=== PATIENT | female | born 1975 | race Caucasian/White ===

== ENCOUNTER → 2024-04-21 14:51 | Outpatient (REF) | payer BC, SELFPAY | LOC: HWWDC 14:51 | PROVIDERS: ATTENDING PHYSICIAN Obstetrics & Gynecology; FAMILY PHYSICIAN Internal Medicine | DX: Z12.31 Encounter for screening mammogram for malignant neoplasm of breast (principal) | CPT/HCPCS: 77063; 77067 ==

== ENCOUNTER 2024-11-23 17:55 | Inpatient (IN) | payer BC, SELFPAY ==
[2024-11-23] VITALS (13 sets, daily range): BP systolic 108–140; BP diastolic 64–92; BMI 34.3; BMI 32.9
--- NOTE | 2024-11-23 10:21 | EDRN ---
Dr. Sotelo in room w/ pt.
--- NOTE | 2024-11-23 10:31 | ED.GENMED ---
History of Present Illness
General
Chief Complaint: Musculo-Skeletal Complaint
Source: patient
Exam Limitations: none
Time Seen by Provider: 11/23/24 10:18
History of Present Illness
History of Present Illness:
49-year-old female low back pain for over a month. Some pain into the right hip. However in the last few days pain has gotten much worse. Now pain is radiating into the abdomen and chest. This started around 1 AM. No shortness of breath
pleuritic pain nausea vomiting no fever chills.
Past History
Past History
ED Past Medical History: Other
ED Past Surgical History: Gynecological
Review of Systems
Review of Systems
All Other Systems: Not applicable
Constitutional: Denies fever
Respiratory: Denies trouble breathing
ABD/GI: Denies vomiting
: Reports no symptoms
Phy Exam
Physical Exam
Physical Exam:
GENERAL: Alert and oriented in no apparent distress
EYE: Orbits normal.
NECK: Supple
CARDIAC: Regular rate and rhythm without any obvious murmurs. Good distal pulses
LUNGS: Clear breath sounds,normal
ABDOMEN: Soft, without focal tenderness or distention. No pulsatile mass. No rebound or guarding no mass or hernia
NEUROLOGICAL: Alert and oriented , grossly non-focal
SKIN: Warm and dry, no rash or lesion, no discoloration, skin intact.
MUSCULOSKELETAL: No edema,no deformity.Good color. No pain with straight leg raising. Able to stand bear weight and walk. Decreased flexion at the hip. No obvious discomfort with hip rotation. All other joints unremarkable
PSYCH: Normal and appropriate interaction.
Course
Orders/Labs/Results
Orders:
Orders
11/23/24 10:28
CT Chest/abd/pelvis Angio W/wo Urgent
Comment:
Reason For Exam: Back pain radiating to the abdomen and chest
IV Insert/Care/Rem.- Treatment PRN
0.9% Sodium Chloride 500 ml [Nss] 500 ml IV BOLUS
Ketorolac [Toradol] 15 mg IV NOW STA
Test Result ONCE
11/23/24 10:29
Electrocardiogram (*1) Stat
Reason for Study: Other
Other Reason for Exam: chest pain
Cardiac Monitoring- Treatment ONCE
EKG- Treatment ONCE
11/23/24 10:49
Complete Blood Count/With Diff Urgent
Comprehensive Metabolic Panel Urgent
HCG, Serum Qualitative Screen Urgent
Lipase Urgent
Lyme Progressive Urgent
Troponin I Urgent
Abnormal Lab Results
11/23/24
10:49
Abs Immat Gran (auto) 0.1 H 10^3/uL
(0-0.05)
Absolute Neuts (auto) 7.1 H 10^3/uL
(1.4-6.5)
Absolute Monos (auto) 0.7 H 10^3/uL
(0.1-0.6)
Immature Gran % 0.9 H %
(0-0.5)
Lymphocytes % 16.9 L %
(20.5-51.1)
Glucose 178 H mg/dl
(70-99)
AST 60 H U/L
(14-36)
Alkaline Phosphatase 434 H U/L
(38-126)
11/23/24 10:49
11/23/24 10:49
Vital Signs
Initial and Last Documented VS:
Initial Vital Signs
Temp Pulse Resp BP Pulse Ox
98.5 F 91 18 127/78 99
11/23/24 10:13 11/23/24 10:13 11/23/24 10:13 11/23/24 10:13 11/23/24 10:13
Last Documented Vital Signs
Temp Pulse Resp BP Pulse Ox
98.5 F 87 15 119/92 95
11/23/24 10:13 11/23/24 14:15 11/23/24 13:45 11/23/24 14:00 11/23/24 13:30
MDM/Problems Addressed
Differential Diagnosis Includes:
Patient with ongoing low back and right hip pain. Likely a musculoskeletal issue. However with the sudden change 10 hours ago of pain rating to the abdomen and chest feel a vascular emergency needs to be ruled out. Low suspicion but a
life-threatening issue if missed. CT angiography will be ordered. Cardiac testing for completeness. Lipase and LFTs. Also will send a Lyme titer
*Radiology
Radiology exam reviewed: radiology read reviewed (Mass right upper lobe of the lung. Suspect metastatic disease to the spine with L3 involvement)
*Pulse Oximetry
SaO2: 99
Oxygen Mode of Delivery: Room air
Patient hypoxic: no
*EKG
Interpreted by ED Provider?: Yes
Comparison EKG: no comparison EKG present
Heart Rate: 79
Rate: normal
Rhythm: sinus
[place]: normal axis
Interval: normal interval
QRS Pattern: normal QRS
Ischemia: no ischemia
*Critical Care Note
Total Time (30-74mins, 75-104mins- exclusive of procedures): Not Applicable
Update Note
Update Note:
Patient of course very tearful over the CT findings. Lengthy succussion with the patient and her sister. I feel it prudent to admit her and further work her up expeditiously in the hospital.
ED Attending Note
-
Portions of this chart may have been created with voice recognition software.� Occasional wrong word or��sound alike� substitutions may have occurred due to the inherent limitations of voice recognition software.
Discharge Plan
Departure
Patient Disposition: Admit
Date of Disposition: 11/23/24
Time of Disposition: 14:12
Presentation/result/management discussed w/ accepting MD/DO: Hospitalist
Discharge Problem:
Progressive low back/hip pain, Anterior chest/abdominal pain, Spiculated mass right upper lobe lung, Suspect bony metastasis
Prescriptions:
No Action
acetaminophen [Tylenol Extra Strength] 500 mg Tablet
1,000 mg PO Q4HPRN PRN (Reason: mild pain)
methylprednisolone 4 mg Tablets,Dose Pack
0 mg PO PER PKG DIR
Patient Comments:
11/23/2024, filled on 11/19/2024 for 6-day supply; per pt., she has 1 tablet left to take tonight and then her last dose is to be taken tomorrow (11/24/2024).
Referrals:
Gus Torres MD [Family Provider, Family Practice]
Interventions
Interventions:
*Risk Screen - Suicide Last Done: 11/23/24 10:13
*General Assessment Last Done: 11/23/24 10:40
*Neglect/Abuse Screening Last Done: 11/23/24 10:40
*ED- Fall Risk Assessment Last Done: 11/23/24 10:40
*ED COVID-19 Vaccine History Last Done: 11/23/24 10:40
ED-Musculoskeletal Assessment Last Done: 11/23/24 10:40
Discharge Date and Time
Print Language: GEORGIAN
[2024-11-23] MEDS: NSS 500 IV (10:56)
[2024-11-23] MEDS: TORADOL 15 MG IV ×2 (10:57→22:14)
[2024-11-23 11:05] LABS: Hematocrit 38.1 % (37.0-47.0); Hemoglobin 13.4 g/dL (12.0-16.0); Mean Corp Hgb Conc. 35.2 g/dL (33.0-37.0); Mean Corpuscular Volume 82.3 fL (81.0-99.0); Nucleated Red Blood Cells % 0 %; Platelet Count 270 10^3/uL (130-400); Red Cell Dist. Width 13.4 % (11.5-14.5)
[2024-11-23 11:11] LABS: HCG, Serum Qualitative Screen Negative
[2024-11-23 11:15] LABS: ALT (SGPT) 22 U/L (0-35); AST (SGOT) 60 U/L (14-36); Albumin 4.5 g/dl (3.5-5.0); Alkaline Phosphatase 434 U/L (38-126); Blood Urea Nitrogen 14 mg/dl (7-17); Calcium 9.5 mg/dl (8.4-10.2); Carbon Dioxide 22 mmol/L (22-30); Chloride 106 mmol/L (98-107); Estimated Creatinine Clearance > 125 ml/min; Glucose 178 mg/dl (70-99); Lipase 56 U/L (23-300); Potassium 4.2 mmol/L (3.5-5.1); Sodium 136 mmol/L (135-145); Total Protein 7.5 g/dl (6.3-8.2); eGFR > 60.00
[2024-11-23 11:26] LABS: Troponin I < 0.012 ng/ml
--- NOTE | 2024-11-23 13:37 | EDRN ---
Dr. Sotelo in room w/pt at this time.
--- NOTE | 2024-11-23 14:10 | W.PN.UPDATE ---
Update Note
Progress Note Update
49-year-old female with mild to moderate MR, vitamin B12 deficiency, vitamin D deficiency, migraine with aura, obesity that is presenting to the ED today with a complaint of low back pain for the last 1 month. Pain radiates into the right hip at
times, patient notes that it is worsened in intensity over the last couple of days. States that at this time it is radiating into the abdomen and chest as well as into the hip. Noticed the progression around 1 AM on day of arrival to the ED.
Denies any chest pain, shortness of breath, fevers or chills, gastrointestinal symptoms. AFVSS upon arrival. Labs with glucose 178, AST 60, ALP 434 but otherwise unremarkable. CTA C/A/P showed spiculated mass centered in the posterior aspect of
the RUL with extension across the major fissure into the RLL, as well as signs as lymphangitic spread of carcinoma within the right lung, low-density hepatic lesions, diffuse bony metastatic disease within the spine with significant metastatic
lesion at L3. In the ED she was given IV Toradol and 500 mL IV fluids.
AAO x 4, NAD, no FND or CN deficits. Cardiopulmonary exam benign. No cervical or axillary LAD. Benign abdomen. No edema, palpable pulses. Skin warm and dry. No gross deformities or signs of trauma. Tenderness to palpation of lumbar spine
Metastatic lung cancer. New diagnosis with CT C/A/P showing likely primary bronchogenic RUL neoplasm and evidence of metastases to liver and spine. Differentials include small cell cancer versus non-small cell lung cancer. No signs of
paraneoplastic syndromes. Will need tissue diagnosis with biopsy of either primary lung mass versus biopsy of liver mets. Will consult IR and pulmonology for consideration of bronchoscopy with biopsy versus liver biopsy. Eventually will need
tissue microscopy, PD 1 and PD-L1 testing, as well as Nex[employer] ration sequencing. Monitor for worsening respiratory status
Lower back pain, elevated ALP. Likely secondary to spinal mets with bone destruction. Continue with as needed analgesics and physical activity as tolerated
Regular diet
Full code
I have personally evaluated the patient at the bedside in the ED. I will be admitting Ari White to [facility]. She is at high risk for worsening morbidity due to metastatic lung cancer with bone destruction. She will need intensive monitoring
of her respiratory status. She will require intervention here to achieve tissue diagnosis of her cancer and establishment of efficacious therapeutic plan. I have discussed the case with the ED attending, oncologist, program administrator, and
interventional radiologist. I have also reviewed the case with the resident, please see the residents H&P for more details when available
--- NOTE | 2024-11-23 14:30 | EDRN ---
Pt is very sad and teary eyed about her diagnosis. Dr. Calzada was in to see pt, resident w/ hospitalist group.
--- NOTE | 2024-11-23 14:42 | EDRN ---
Dr. Duval in room at present w/ Dr. Calzada at this time.
--- NOTE | 2024-11-23 15:10 | HPS.HSE ---
Family Physician
-
Family Physician: Gus Torres
Chief Complaint
-
R hip pain
History of Present Illness
Ms Dennis is a 49-year-old female with mitral regurgitation, vitamin B12 deficiency, vitamin D deficiency, migraine with aura, obesity that presented to the ED today with a complaint of low back pain for the last 1 month. Pain radiates into the
right hip at times which has worsened. It started radiating into the abdomen and chest as well as into the hip. Noticed the progression around 1 AM on day of arrival to the ED. Denies any chest pain, shortness of breath, fevers or chills,
gastrointestinal symptoms. Vital signs were stable in the ED. Labs with WBCs 9.6 hemoglobin 13.4 sodium 136 potassium 4.4 creatinine 0.6 BUN 14 glucose 178, AST 60, ALP [address] chest abdomen pelvis showed spiculated mass
centered in the posterior aspect of the RUL with extension across the major fissure into the RLL, as well as signs as lymphangitic spread of carcinoma within the right lung, low-density hepatic lesions, diffuse bony metastatic disease within the
spine with significant metastatic lesion at L3. In the ED she was given IV Toradol and 500 mL IV fluids. She reported distant smoking history of 2 years in college, family history of lung cancer in maternal grandmother who was a smoker, father
with prostate cancer in his 80s. Otherwise no other family history. 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 She reports no significant smoke or chemical exposure throughout her lifetime. Last doctor's visit was about 2
years ago with [facility] with no findings at that time.
Medical History
Past Medical History
Past Medical History: Reports Other (Mild to moderate mitral regurgitation, vitamin B12 deficiency, vitamin D deficiency, migraine with aura)
Past Surgical History: Reports None
Social History
Tobacco: Former Smoker (2-year smoking history in 20s)
Living: With Family
Employment: Employed (Special ed director at [employer])
Family History
Family History: Other (maternal grandmother lung cancer (smoker), prostate cancer father in 80s )
Allergies / Home Medications
Allergies reflects when Allergies were last updated in blabfeed.
Home Medications with original date entered in blabfeed
Allergy/Medication List:
Allergies
Allergy/AdvReac Type Severity Reaction Status Date / Time
seasonal allergies Allergy nasal Uncoded 11/23/24 10:16
symptoms
Home Medications
acetaminophen 500 mg tablet (Tylenol Extra Strength) 1,000 mg PO Q4HPRN PRN mild pain 11/23/24
methylprednisolone 4 mg tablets in a dose pack 0 mg PO PER PKG DIR 11/23/24
Review of Systems
-
History Source: Patient
Constitutional: Reports No Symptoms; Denies Fever or Weight Loss
EENT: Reports No Symptoms
Respiratory: Reports No Symptoms; Denies Hemoptysis or Trouble Breathing
Cardiac: Reports No Symptoms; Denies Chest Pain, Diaphoresis or Palpitations
Abdomen/GI: Reports No Symptoms; Denies Abdominal Pain, Nausea or Vomiting
: Reports No Symptoms
Musculoskeletal: Reports Joint Pain (Right hip, low back)
Skin: Reports No Symptoms
Neurological: Reports No Symptoms
Psych: Reports No Symptoms
Physical Exam
Vital Signs
Vital Signs
Temp Pulse Resp BP Pulse Ox
98.5 F 87 15 119/92 95
11/23/24 10:13 11/23/24 14:15 11/23/24 13:45 11/23/24 14:00 11/23/24 13:30
Physical Exam
General: Well Developed, Well Nourished, No Apparent Distress, Obese and Other (Tearful)
HEENT: NormoCephalic, Anicteric, Atraumatic and Neck Nontender; No Neck Mass
Respiratory: Clear and Non Labored Respirations; No Wheezes or Crackles
Cardiac: S1/S2 and Regular Rhythm
Breast: Deferred by me
GI: Soft, Non Tender, Non Distended and Normal Bowel Sounds
Rectal: Deferred by Provider
Genito-urinary: Deferred by me
Musculoskeletal: No Clubbing, No Cyanosis and No Edema
Skin: Warm and Dry
Neuro: Awake, Alert, Oriented, No Motor Deficits and Nonfocal/grossly intact
Laboratory Results
-
11/23/24 10:49
11/23/24 10:49
Laboratory Results
Total Bilirubin 0.8 mg/dl (0.2-1.3) 11/23/24 10:49
AST 60 U/L (14-36) H 11/23/24 10:49
ALT 22 U/L (0-35) 11/23/24 10:49
Alkaline Phosphatase 434 U/L (38-126) H 11/23/24 10:49
Troponin I < 0.012 ng/ml 11/23/24 10:49
Lipase 56 U/L (23-300) 11/23/24 10:49
Impression/Plan
-
Ms Dennis is 49-year-old female with mild to moderate MR, vitamin B12 deficiency, vitamin D deficiency, migraine with aura, obesity that is presenting to the ED today with a complaint of low back pain for the last 1 month. Pain radiates into the
abdomen and chest as well as into the hip. CT chest showed spiculated mass centered in the posterior aspect of the RUL with extension across the major fissure into the RLL, as well as signs as lymphangitic spread of carcinoma within the right lung,
low-density hepatic lesions, diffuse bony metastatic disease within the spine with significant metastatic lesion at L3. In the ED she was given IV Toradol and 500 mL IV fluids.
# Lung neoplasm
# low back pain
# spinal lesions
# hepatic lesions
# elevated ALK Phos
former smoker (2yr history)
FHx grandmother smoker
DDx small cell vs non small cell
biopsy pending
Consult Onc
Consult Pulm
Consider IR Consult
-pain control as needed
-activity as tolerated
Bowel regimen
-as needed
DVT prophylaxis
Subcu heparin
CODE STATUS
Full code
Imaging
CT chest abdomen pelvis
IMPRESSION: Spiculated mass centered in the posterior aspect of the right upper lobe, which appears to extend across the major fissure into the adjacent right lower lobe of the lung. This is highly suspicious for malignancy/bronchogenic carcinoma.
As described, findings suspicious for lymphangitic spread of carcinoma within the right lung.
Low-density hepatic lesions, which are likely hepatic metastatic disease.
Diffuse bony metastatic disease, mainly within the spine. Evidence for epidural spread of neoplasia from metastatic lesion within the L3 vertebra, extending into the right anterolateral aspect of the spinal canal.
[2024-11-23] MEDS: NORCO 5/325 1 TABLET PO (16:05)
--- NOTE | 2024-11-23 16:30 | EDRN ---
Dr. Dooley in room w/ pt at this time.
--- NOTE | 2024-11-23 17:10 | CON.PUL ---
Consultation
Consultation Request
Date/Time Consultation Requested: 11/23
Date/Time Consultation Performed: 11/23
Reason for Consultation: Abnormal imaging
Medical History
-
History of Present Illness:
History obtained from the patient and reviewing hospital records. 49-year-old female without significant medical history who describes chronic back pain for '25 years', chronic cough for '25 years'. She attributes her cough to seasonal allergies.
She sees a chiropractor for her back pain. She felt her back pain had flared up about 3 weeks ago, was seen by her chiropractor with initial improvement. Then the pain returned, started on prednisone therapy. Prednisone therapy did not help and
therefore she brought herself into [facility]. To me she denied any abdominal pain, chest tightness, pleurisy, nausea, emesis, change in bowel habits, fevers, chills. She admits to chronic night sweats. She denies any recent antibiotics.
She states she is up to date with mammogram, has never had a colonoscopy. She has not seen her primary physician in more than few years. Upon arrival to [facility], afebrile, pulse 91, breathing at 18, blood pressure 127/78, 99%. ED records
suggest that the pain was radiating to the abdomen and the chest however patient denied this to me. CT chest obtained and we are asked to comment on her findings.
Of note, she denies any weight loss, recent travel. She does travel to [place] occasionally, last travel 2 years ago. She has had negative skin testing for tuberculosis but has not had any since her last visit to [place]. She is a lifelong
non-smoker.
Patient describes herself as active without any limitations. She denies lightheadedness, dizziness, falls, syncope. She describes occasional palpitations which are also a chronic problem according to her
.
PMH: History of ectopic
Past Medical History
Past Medical History: None ( see above)
Past Surgical History: None ( see above)
Social History
Tobacco: Non-smoker
Alcohol: Occasional
Drug: None
Personal: Single
Living: Alone
Employment: Employed ( works in the school district)
Environmental Exposures: two dogs, no birds
Family History
Family History: Reviewed & Not Pertinent ( 2 children healthy, 2 siblings healthy. Both parents are alive. Family history negative for blood clots, lung cancer)
Allergies / Home Medications
Allergies
Allergy/AdvReac Type Severity Reaction Status Date / Time
seasonal allergies Allergy nasal Uncoded 11/23/24 10:16
symptoms
Home Medications
�Medication �Instructions �Recorded �Confirmed �Last Taken �Type
acetaminophen 500 mg tablet 1,000 mg PO Q4HPRN PRN mild pain 11/23/24 11/23/24 11/23/24 History
(Tylenol Extra Strength)
methylprednisolone 4 mg tablets in 0 mg PO PER PKG DIR 11/23/24 11/23/24 11/23/24 History
a dose pack
Review of Systems
-
All other systems: Negative unless noted
Vitals / Labs / Diagnostic Testing
Vital Signs
Temp Pulse Resp BP Pulse Ox
98.5 F 96 14 135/86 97
11/23/24 10:13 11/23/24 16:30 11/23/24 16:30 11/23/24 16:00 11/23/24 16:30
Lab Data
11/23/24 10:49
11/23/24 10:49
Diagnostic Testing:
Physical Exam
-
HEENT: Normocephalic and Anicteric
Cardiovascular: S1/S2, Regular Rhythm, Murmur (n), Rub (n), Peripheral Edema (n) and Calf Tenderness (n)
Respiratory: Wheeze (n), Rales (n), Rhonchi (n) and Non-Labored Respirations
GI: Soft, Non Distended and Non Tender
Neurology: Awake, Alert and No Motor Deficits
Skin: Good Color and Other ( ankle tattoo)
General: Comfortable
Assessment
-
49-year-old female with history of chronic back pain, chronic cough with worsening of her back pain over the last few weeks, treated with a course of steroids with no improvement. Imaging suggests 4.2 cm mass in the right upper lobe, adenopathy and
small low density liver lesions and bony lytic lesions in the spine
Worsening back pain, right hip pain
4.3 cm right upper lobe mass
Right-sided adenopathy, subcarinal adenopathy
Small liver lesions, largest 1.9 cm
Suspected bony lytic lesions in the spine, sacrum
1.5 cm nodule right upper lobe
Mild hepatomegaly
3 cm left ovarian cystic mass, likely benign simple cyst per imaging report
Conditions present prior to admission
Chronic back pain for 25 years
Chronic cough for 25 years
Attributed to allergies
History of ectopic
Plan/recommendations
At this time, upon my arrival patient was extremely tearful and crying
I attempted to console her
Although her imaging is highly worrisome for malignancy, I reassured her that treatment options are available, slim possibility that it may be a nonmalignant, although I relayed to patient and friend and sister by phone that cancer is highly
suspected.
Tissue biopsy is important
Briefly reviewed with interventional radiology. Although liver lesions are accessible by biopsy, it is recommended to pursue lung biopsy initially and if not possible or nondiagnostic, consider liver biopsy given size.
Reviewed at length navigational bronchoscopy with lymph node biopsy.
We are able to pursue this 11/27
Reviewed risks at length with patient
Reviewed less than 1% chance for bleeding, 3-5% chance for pneumothorax
Reviewed risks of anesthesia. Patient tolerated anesthesia for ectopic in the past
Also reviewed possibly of liver biopsy
Reviewed possibly of false negative findings with either liver and/or lung biopsy
Patient is leaning more towards lung biopsy given that she will be asleep during procedure. She is extremely anxious throughout interview, with multiple attempts on my part to console her with the fact there are there are therapies for cancer that
are pretty effective especially with appropriate genetic mutations.
Given that she is a lifelong non-smoker, genetic analysis will be important
Continue with pain control for now per primary service
Await oncology evaluation whom I briefly reviewed the above ([place])
Patient is aware that she may require PET scan and/or additional imaging, which can be done as an outpatient pending biopsy
We will tentatively set her up for navigational bronchoscopy 11/27 as an outpatient, and may change this depending on oncology input, potential for liver biopsy
We will obtain baseline EKG and coagulation studies
No need for cardiac clearance, patient is not taking any blood thinners
Reviewed at length with patient, sister by phone and friend at bedside
Reviewed with oncology and briefly with interventional radiology
We will follow
--- NOTE | 2024-11-23 17:16 | EDRN ---
Diet tray ordered at this time.
[2024-11-23] MEDS: LOVENOX 40 MG SC (18:54)
[2024-11-23] MEDS: TYLENOL 650 MG PO (18:54)
[2024-11-23] MEDS: MELATONIN 5 MG PO (22:24)
--- NOTE | 2024-11-24 02:34 | DOWNTIME ---
There was a [employer] Downtime on 11/24/2024 from 0100 to 11/24/2024 at 0220. Downtime documentation of patient's care, including medication administrations, has been reconciled in the electronic record per guidelines. Refer to the
patient's paper chart under the miscellaneous tab to see printed paper medication records and downtime forms.
--- NOTE | 2024-11-24 03:20 | PTCARENOTE ---
Pt arrived to the unit from the ED via stretcher at 1940. Pt ambulated to the bed w/o assist, gait steady. AAOx3, tearful and anxious r/t current medical status. VSS as documented. Assessment as documented. Pt oriented to room & care plan, bed is in
lowest and locked. Call bee within reach. Will continue to monitor.
[2024-11-24] MEDS: TORADOL 15 MG IV ×2 (05:40→10:19)
[2024-11-24 06:58] LABS: Hematocrit 36.1 % (37.0-47.0); Hemoglobin 12.5 g/dL (12.0-16.0); Mean Corp Hgb Conc. 34.6 g/dL (33.0-37.0); Mean Corpuscular Volume 82.4 fL (81.0-99.0); Platelet Count 238 10^3/uL (130-400); Red Cell Dist. Width 13.4 % (11.5-14.5)
[2024-11-24 07:00] VITALS: BP 122/78
[2024-11-24 07:10] LABS: INR 1.10; PT 14.5 Sec (11.4-14.6)
--- NOTE | 2024-11-24 07:18 | CON.ONC ---
Consultation
-
Date Consultation Performed: 11/24/24
Performing Provider: Ivonne Cardenas
Impression
Impression
Lung mass, lymphangitic spread and liver lesions seen on CT CAP concerning for new diagnosis of lung cancer
Back pain for 1 month, likely bony metastatic disease
Plan
Plan
Patient opted for bronch/biopsies on Saturday11/27/24 as outpatient rather than IR liver biopsy
If biopsy confirms lung cancer, outpatient PET, brain MRI, [facility] 360 liquid biopsy would be recommended with office follow up
Patient History
History of Present Illness
Patient is a 49 year old female with PMH of mitral regurgitation and migraine with aura presenting with low back pain for 1 month.
Patient starting having pain about a month ago. She started seeing a chiropractor and tried a steroid pack with minimal relief. Patient states that her pain has been the same for the last 2 weeks. Low back and right hip. Does not radiate. Moving
around alleviates hip pain.
In the ED she was given IV Toradol and [address] Chest revealed a spiculated mass centered in the posterior aspect of the right upper lobe, which appears to extend across the major fissure into the adjacent right lower lobe of the lung,
highly suspicious for malignancy. Findings also suspicious for lymphangitic spread of carcinoma within the right lung, multiple low-density lesions within the liver highly suspicious for hepatic metastatic disease as well as diffuse bony metastatic
disease, mainly within the spine.
Patient reports distant and minimal smoking history. Patient repots no smoke or chemical exposures. Family history notable for lung cancer in maternal grandmother who was a smoker, and father with prostate cancer in his 80s.
Today patient is seen at the bedside with Dr. Cardenas. Patient's sister was on the phone. Patient says her pain is persistent and that although the pain medication helps, its still just as painful when they wear off. Patient notes a chronic cough,
with no recent changes. We discussed the options for a bronchoscopy with pulm vs. a liver biopsy with IR. Patient is opting for the outpatient bronchoscopy on 11/27/24.
Past-Medical/Surgical History
Medical
Mild to moderate mitral regurgitation
vitamin B12 deficiency
vitamin D deficiency
migraine with aura
Surgical
reports none
Social
Tobacco: Remote smoking history (2 years in college)
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
Family History
Lung cancer - maternal grandmother
Prostate cancer - father
Patient Medication
�Medication �Instructions �Recorded �Confirmed �Last Taken �Type
acetaminophen 500 mg tablet 1,000 mg PO Q4HPRN PRN mild pain 11/23/24 11/23/24 11/23/24 History
(Tylenol Extra Strength)
methylprednisolone 4 mg tablets in 0 mg PO PER PKG DIR 11/23/24 11/23/24 11/23/24 History
a dose pack
Active Medications
Generic Name Dose Route Start Last Admin
Trade Name Freq PRN Reason Stop Dose Admin
Acetaminophen 650 mg 11/23/24 15:53 11/23/24 18:54
Acetaminophen 325 Mg Tablet PO 12/21/24 15:52 650 mg
Q4HPRN PRN Administration
mild pain
Hydrocodone Bitart/Acetaminophen 1 tablet 11/23/24 15:53 11/23/24 16:05
Hydrocodone 5 Mg/Acetaminophen 325 Mg Tablet PO 12/07/24 15:52 1 tablet
Q4HPRN PRN Administration
severe pain
Bisacodyl 10 mg 11/23/24 15:07
Bisacodyl 10 Mg Rectal Suppository RECTAL 12/21/24 15:06
[id number] PRN
constipation
Enoxaparin Sodium 40 mg 11/23/24 18:00 11/23/24 18:54
Enoxaparin Sodium 40 Mg/0.4 Ml Syringe SC 12/21/24 17:59 40 mg
QPM NICK Administration
Ketorolac Tromethamine 15 mg 11/23/24 21:03 11/24/24 05:40
Ketorolac 15 Mg/Ml Injection IV 11/28/24 21:02 15 mg
Q6HPRN PRN Administration
moderate pain
Melatonin 5 mg 11/23/24 22:30 11/23/24 22:24
Melatonin 5 Mg Tablet PO 12/21/24 22:29 5 mg
HS NICK Administration
Polyethylene Glycol 17 grams 11/23/24 15:07
Polyethylene Glycol Powder 17 Grams Packet PO 12/21/24 15:06
DAILYPRN PRN
constipation
Senna/Docusate Sodium 1 tablet 11/23/24 15:07
Docusate W/Senna (Racheal-Colace) Tablet PO 12/21/24 15:06
BIDPRN PRN
constipation
Sodium Chloride 0 flush 11/23/24 22:00
Sodium Chloride 0.9% (Flush) Syringe IV 12/21/24 21:59
PER PROTOCOL NICK
Review of Systems
-
History Source: Patient
Constitutional: Reports No Symptoms
Respiratory: Reports Cough
Cardiac: Reports No Symptoms
GI: Reports No Symptoms
: Reports No Symptoms
Musculoskeletal: Reports Other (back pain and right hip pain)
Skin: Reports No Symptoms
Physical Exam
-
General: Well Developed, Well Nourished and No Apparent Distress
Labs
Lab Results
WBC 7.0 10^3/uL (4.8-10.8) 11/24/24 06:37
RBC 4.38 10^6/uL (4.20-5.40) 11/24/24 06:37
Hgb 12.5 g/dL (12.0-16.0) 11/24/24 06:37
Hct 36.1 % (37.0-47.0) L 11/24/24 06:37
MCV 82.4 fL (81.0-99.0) 11/24/24 06:37
MCH 28.5 pg (27.0-31.0) 11/24/24 06:37
MCHC 34.6 g/dL (33.0-37.0) 11/24/24 06:37
RDW 13.4 % (11.5-14.5) 11/24/24 06:37
Plt Count 238 10^3/uL (130-400) 11/24/24 06:37
MPV 9.0 fL (7.4-10.4) 11/24/24 06:37
Abs Immat Gran (auto) 0.1 10^3/uL (0-0.05) H 11/23/24 10:49
Absolute Neuts (auto) 7.1 10^3/uL (1.4-6.5) H 11/23/24 10:49
Absolute Lymphs (auto) 1.6 10^3/uL (1.2-3.4) 11/23/24 10:49
Absolute Monos (auto) 0.7 10^3/uL (0.1-0.6) H 11/23/24 10:49
Absolute Eos (auto) 0.1 10^3/uL (0-0.7) 11/23/24 10:49
Absolute Basos (auto) 0.1 10^3/uL (0-0.2) 11/23/24 10:49
Immature Gran % 0.9 % (0-0.5) H 11/23/24 10:49
Neutrophils % 74.1 % (42.2-75.2) 11/23/24 10:49
Lymphocytes % 16.9 % (20.5-51.1) L 11/23/24 10:49
Monocytes % 6.8 % (1.7-9.3) 11/23/24 10:49
Eosinophils % 0.8 % (0-6) 11/23/24 10:49
Basophils % 0.5 % (0-2) 11/23/24 10:49
Creatinine 0.6 mg/dL (0.6-1.0) 11/23/24 10:49
Vital Signs
Vital Signs
Temp Pulse Resp BP Pulse Ox
98.6 F 87 16 108/66 95
11/23/24 23:12 11/23/24 23:12 11/23/24 23:12 11/23/24 23:12 11/23/24 23:12
[2024-11-24 07:39] LABS: Blood Urea Nitrogen 9 mg/dl (7-17); Calcium 8.7 mg/dl (8.4-10.2); Carbon Dioxide 24 mmol/L (22-30); Chloride 106 mmol/L (98-107); Estimated Creatinine Clearance > 125 ml/min; Glucose 174 mg/dl (70-99); Magnesium 2.4 mg/dl (1.6-2.3); Potassium 3.9 mmol/L (3.5-5.1); Sodium 137 mmol/L (135-145); eGFR > 60.00
--- NOTE | 2024-11-24 08:51 | W.PN.HOSP.TC ---
Today's Communication/Plan
-
Bronchoscopy for biopsy planned outpatient on 11/27
Assessment / Plan
Assessment / Plan
Ms Dennis is 49-year-old female with mild to moderate MR, vitamin B12 deficiency, vitamin D deficiency, migraine with aura, obesity that is presenting to the ED today with a complaint of low back pain for the last 1 month. Pain radiates into the
abdomen and chest as well as into the hip. CT chest showed spiculated mass centered in the posterior aspect of the RUL with extension across the major fissure into the RLL, as well as signs as lymphangitic spread of carcinoma within the right lung,
low-density hepatic lesions, diffuse bony metastatic disease within the spine with significant metastatic lesion at L3. In the ED she was given IV Toradol and 500 mL IV fluids. In the hospital patient discussed with pulmonology about outpatient
bronchoscopy on 11/27. Patient to speak with hematology oncology.
# Lung neoplasm
# low back pain
# spinal lesions
# hepatic lesions
# elevated ALK Phos
former smoker (2yr history)
FHx grandmother smoker
DDx small cell vs non small cell
biopsy pending
Consult Onc
Consult Pulm
Consider IR Consult
-pain control as needed
-activity as tolerated
Bowel regimen
-as needed
DVT prophylaxis
Subcu heparin
CODE STATUS
Full code
Anticipated Discharge: Within 24 hours
Subjective/Interval History
-
Patient was seen at bedside today. Reported no complaints. Patient discussed with pulmonology about bronchoscopy outpatient and understands the need for biopsy to determine treatment options. Sister is coming into town soon. Date of Service:
November 24, 2024
Objective Data
-
Labs:
Laboratory Results
11/24/24
06:37
WBC 7.0
Hgb 12.5
Hct 36.1 L
Plt Count 238
PT 14.5
INR 1.10
Sodium 137
Potassium 3.9
Chloride 106
Carbon Dioxide 24
BUN 9
Creatinine 0.6
Glucose 174 H
Calcium 8.7
Vital Signs:
Vital Signs
Temp Pulse Resp BP Pulse Ox
98.5 F 78 16 122/78 96
11/24/24 07:00 11/24/24 07:00 11/24/24 07:00 11/24/24 07:00 11/24/24 07:00
I&O
11/23/24 11/24/24 11/25/24
06:59 06:59 06:59
Intake Total 960 / 960
Balance 960 / 960
Review of Systems
-
History Source: Patient
All other systems: Reviewed and negative
Constitutional: Reports No Symptoms; Denies Fever, Weight Loss or Fatigue
EENT: Reports No Symptoms Reported; Denies Sore Throat or Runny Nose
Respiratory: Reports No Symptoms; Denies Cough, Hemoptysis or Trouble Breathing
Cardiac: Reports No Symptoms; Denies Chest Pain, Diaphoresis or Palpitations
Abdomen/GI: Reports No Symptoms; Denies Abdominal Pain, Nausea, Vomiting or Diarrhea
Genitourinary: Reports No Symptoms; Denies Dysuria
Musculoskeletal: Reports No Symptoms; Denies Joint Pain
Skin: Reports No Symptoms; Denies Itching or Rash
Neuro: Reports No Symptoms; Denies Dizzy or Headache
Physical Exam
-
General: Well Developed, Well Nourished, No Apparent Distress and Obese
HEENT: Normocephalic and Atraumatic
Respiratory: Clear to Auscultation and Non Labored Respirations; Negative Wheezes or Crackles
Cardiac: Regular Rhythm and S1/S2; Negative Murmur
GI: Soft, Nontender, Nondistended and Normal Bowel Sounds
Musculoskeletal: No Clubbing, No Cyanosis and No Edema
Skin: Warm and Dry
Neuro: Awake, Alert, Oriented and No Motor Deficits
--- NOTE | 2024-11-24 10:00 | W.PN.PUL.V3 ---
Today's Communication / Plan
-
Stable respiratory status
Outpatient tentative bronchoscopy on 11/27/2024
Outpatient pulmonary follow-up
Assessment
-
49-year-old female with history of chronic back pain, chronic cough with worsening of her back pain over the last few weeks, treated with a course of steroids with no improvement. Imaging suggests 4.2 cm mass in the right upper lobe, adenopathy and
small low density liver lesions and bony lytic lesions in the spine
Worsening back pain, right hip pain
4.3 cm right upper lobe mass
Right-sided adenopathy, subcarinal adenopathy
Small liver lesions, largest 1.9 cm
Suspected bony lytic lesions in the spine, sacrum
1.5 cm nodule right upper lobe
Mild hepatomegaly
3 cm left ovarian cystic mass, likely benign simple cyst per imaging report
Conditions present prior to admission
Chronic back pain for 25 years
Chronic cough for 25 years
Attributed to allergies
History of ectopic
Plan/recommendations
Respiratory status is stable
Not requiring supplemental oxygen
No need for nebulizers
Radiographs reviewed-unfortunately highly worrisome for underlying malignancy-this possibility has been reviewed with her by multiple physicians
Tissue biopsy is important
Dr Dooley briefly reviewed with interventional radiology on 11/23/2024. Although liver lesions are accessible by biopsy, it is recommended to pursue lung biopsy initially and if not possible or nondiagnostic, consider liver biopsy given size.
Reviewed at length navigational bronchoscopy with lymph node biopsy.
We are able to pursue this 11/27/24
Reviewed risks at length with patient
Reviewed less than 1% chance for bleeding, 3-5% chance for pneumothorax
Reviewed risks of anesthesia. Patient tolerated anesthesia for ectopic in the past
Also reviewed possibly of liver biopsy
Reviewed possibly of false negative findings with either liver and/or lung biopsy
Patient is leaning more towards lung biopsy given that she will be asleep during procedure.
She is unfortunately extremely
Given that she is a lifelong non-smoker, genetic analysis will be important
Continue with pain control for now per primary service
Oncology to see patient prior to discharge-pending
Patient is aware that she may require PET scan and/or additional imaging, which can be done as an outpatient pending biopsy
We will tentatively set her up for navigational bronchoscopy 11/27 as an outpatient, and may change this depending on oncology input, potential for liver biopsy
We will obtain baseline EKG and coagulation studies
No need for cardiac clearance, patient is not taking any blood thinners
Reviewed at length with patient, sister by phone and friend at bedside
Reviewed with oncology and briefly with interventional radiology
Outpatient pulmonary follow-up
Subjective Data
-
Date of Service:
Date of Service: November 24, 2024
Chief Complaint: Pulmonary Follow Up and Dyspnea Follow Up
Subjective:
No complaints of shortness of breath, still tearful, no chest pain
Review of Systems
General: Other (Per HPI)
Objective Data
Data Reviewed
Vital Signs / I&O:
Vital Signs
Temp Pulse Resp BP Pulse Ox
98.5 F 78 16 122/78 96
11/24/24 07:00 11/24/24 07:00 11/24/24 07:00 11/24/24 07:00 11/24/24 07:00
Intake and Output
11/23/24 11/24/24 11/25/24
06:59 06:59 06:59
Intake Total 960 / 960
Balance 960 / 960
SaO2: 96
Physical Exam
General: Respiratory Distress (n) and Comfortable
HEENT: Normocephalic, Anicteric and Moist Mucous Membranes
Cardiovascular: Regular Rhythm
Respiratory: Crackles (n), Rhonchi (n), Non-Labored Respirations, Accessory Resp Muscle Use (n) and Stridor (n)
GI: Soft, Non Distended and Non Tender
Neurology: Awake, Oriented and No Motor Deficits
Skin: Warm, Good Color, Cyanosis (n), Jaundice (n) and Rash (n)
Labs/Micro/Reports
Lab Data
11/24/24 06:37
11/24/24 06:37
Laboratory Results
11/24/24
06:37
PT 14.5
INR 1.10
[2024-11-24] MEDS: PROTONIX 20 MG PO (10:20)
--- NOTE | 2024-11-24 13:02 | CM ---
Patient seen at bedside on . Patient for discharge home today with sister and follow up with outpatient biopsy. CM will continue to follow for discharge planning needs.
plan;home follow up for biopsy
--- NOTE | 2024-11-24 14:13 | W.DCSUMMARY ---
Documented by User: Nga Calzada MD, Resident 11/24/24 14:34
Discharge Summary
Discharge Data
Date of Admission: 11/23/24
Date of Discharge: 11/24/24
-
Pending Results: No
Hospital Course
Discharging Physician : Dr. Godinez, Dr. Calzada
Disposition : Home
Primary care physician : Gus Torres
Principal Discharge diagnosis : Spiculated lung mass
Chronic Discharge diagnosis :
Chronic back pain
Chronic cough
Hospital Course :
Ms Dennis is 49-year-old female with chronic back pain, chronic cough mild to moderate MR, vitamin B12 deficiency, vitamin D deficiency, migraine with aura, obesity that is presenting to the ED today with a complaint of low back pain for the last
1 month. Pain radiates into the right hip. CT chest showed spiculated mass centered in the posterior aspect of the RUL with extension across the major fissure into the RLL, as well as signs as lymphangitic spread of carcinoma within the right lung,
low-density hepatic lesions, diffuse bony metastatic disease within the spine with significant metastatic lesion at L3. She denied any chest pain, shortness of breath, fevers or chills, gastrointestinal symptoms. Vital signs were stable in the ED.
Labs with WBCs 9.6 hemoglobin 13.4 sodium 136 potassium 4.4 creatinine 0.6 BUN 14 glucose 178, AST 60, ALP 434 but otherwise unremarkable in the ED. She was given IV Toradol and 500 mL IV fluids. In the hospital pain was controlled with Toradol
and patient discussed with pulmonology with the plan for outpatient bronchoscopy biopsy on 11/27. Patient spoke with hematology oncology who agreed with the bronchoscopy plan and set up outpatient follow-up. On discharge she was afebrile
normotensive and saturating well on room air, CBC and BMP labs were within normal limits. Patient was medically stable for discharge.
Important imaging findings :
CT chest abdomen pelvis 11/23
IMPRESSION: Spiculated mass centered in the posterior aspect of the right upper lobe, which appears to extend across the major fissure into the adjacent right lower lobe of the lung. This is highly suspicious for malignancy/bronchogenic carcinoma.
As described, findings suspicious for lymphangitic spread of carcinoma within the right lung.
Low-density hepatic lesions, which are likely hepatic metastatic disease.
Diffuse bony metastatic disease, mainly within the spine. Evidence for epidural spread of neoplasia from metastatic lesion within the L3 vertebra, extending into the right anterolateral aspect of the spinal canal.
Procedure findings :
Discharge Plan
-
Patient Disposition: Home (Routine Discharge)
Discharge Diagnosis/Procedures: Spiculated lung mass
Condition: Fair
Diet: As tolerated
Activity: No restrictions
Driving Restrictions: As prior to admission
Referrals:
Mushtaq Dooley MD [Active, Pulmonary Medicine]
Referral Note: after lung biopsy-end of next week
Gus Torres MD [Family Provider, Family Practice] - in less than 1 week
Ivonne Cardenas MD [Active, Oncology]
Prescriptions:
New
ketorolac 10 mg tablet
10 mg PO Q6H Qty: 20 0RF
Rx Instructions:
maximum total duration of 5 days from all oral, intranasal, or parenteral formulations
Continued
acetaminophen [Tylenol Extra Strength] 500 mg Tablet
1,000 mg PO Q4HPRN PRN (Reason: mild pain)
Discontinued
methylprednisolone 4 mg Tablets,Dose Pack
0 mg PO PER PKG DIR
Patient Comments:
11/23/2024, filled on 11/19/2024 for 6-day supply; per pt., she has 1 tablet left to take tonight and then her last dose is to be taken tomorrow (11/24/2024).
Discharge Orders:
Discharge Patient (As Directed); Ordered 11/24/24
Ordered By: Nga Calzada
Discharge Date and Time
Print Language: ERITREAN

Documented by User: Rodriguez Godinez DO 11/24/24 14:38
Discharge Summary
Discharge Data
Date of Admission: 11/23/24
Date of Discharge: 11/24/24
Total time spent discharging patient (in min): 34
Discharge Plan
-
Patient Disposition: Home (Routine Discharge)
Discharge Diagnosis/Procedures: Spiculated lung mass
Condition: Fair
Diet: As tolerated
Activity: No restrictions
Driving Restrictions: As prior to admission
Referrals:
Mushtaq Dooley MD [Active, Pulmonary Medicine]
Referral Note: after lung biopsy-end of next week
Gus Torres MD [Family Provider, Family Practice] - in less than 1 week
Ivonne Cardenas MD [Active, Oncology]
Prescriptions:
New
ketorolac 10 mg tablet
10 mg PO Q6H Qty: 20 0RF
Rx Instructions:
maximum total duration of 5 days from all oral, intranasal, or parenteral formulations
Continued
acetaminophen [Tylenol Extra Strength] 500 mg Tablet
1,000 mg PO Q4HPRN PRN (Reason: mild pain)
Discontinued
methylprednisolone 4 mg Tablets,Dose Pack
0 mg PO PER PKG DIR
Patient Comments:
11/23/2024, filled on 11/19/2024 for 6-day supply; per pt., she has 1 tablet left to take tonight and then her last dose is to be taken tomorrow (11/24/2024).
Discharge Orders:
Discharge Patient (As Directed); Ordered 11/24/24
Ordered By: Nga Calzada
Discharge Date and Time
Print Language: ERITREAN
[2024-11-24] MEDS: TORADOL 30 MG IV (14:36)
[2024-11-24 14:41] VITALS: BP 134/84
[2024-11-25 11:42] LABS: Lyme Antibody Screen, EIA Negative (Negative)
== END 2024-11-24 15:12 | disposition home or self-care (01) | DRG 181 ==
LOC: 2 NORTH 17:55
PROVIDERS: Student in an Organized Health Care Education/Training Program; ADMITTING PHYSICIAN Internal Medicine; CONSULT PHYSICIAN Internal Medicine Critical Care Medicine; CONSULT PHYSICIAN Internal Medicine Hematology & Oncology; EMERGENCY PHYSICIAN Emergency Medicine; FAMILY PHYSICIAN Family Medicine
DX: C34.11 Malignant neoplasm of upper lobe, right bronchus or lung (principal); C78.7 Secondary malignant neoplasm of liver and intrahepatic bile duct; C79.51 Secondary malignant neoplasm of bone; E55.9 Vitamin D deficiency, unspecified; G43.109 Migraine with aura, not intractable, without status migrainosus; E66.9 Obesity, unspecified; J30.2 Other seasonal allergic rhinitis; R61 Generalized hyperhidrosis; G89.29 Other chronic pain; M25.551 Pain in right hip; R16.0 Hepatomegaly, not elsewhere classified; R59.9 Enlarged lymph nodes, unspecified; I34.0 Nonrheumatic mitral (valve) insufficiency; N83.202 Unspecified ovarian cyst, left side; E53.8 Deficiency of other specified B group vitamins; Z68.32 Body mass index [BMI] 32.0-32.9, adult; Z80.1 Family history of malignant neoplasm of trachea, bronchus and lung; Z80.42 Family history of malignant neoplasm of prostate; Z87.891 Personal history of nicotine dependence; Z87.59 Personal history of other complications of pregnancy, childbirth and the puerperium
CPT/HCPCS: 71275; 74174; 80048; 80053; 83690; 83735; 84484; 84703; 85025; 85027; 85610; 86618; 93005; 96361; 96374; 99285; Q9967

== ENCOUNTER 2024-11-27 06:08 | Day surgery (SDC) | payer BC, SELFPAY ==
[2024-11-27] VITALS (9 sets, daily range): BP systolic 103–132; BP diastolic 71–85; BMI 32.4
== END 2024-11-27 12:26 | disposition home or self-care (01) ==
LOC: GI 06:08
PROVIDERS: ATTENDING PHYSICIAN Internal Medicine Critical Care Medicine
DX: R91.8 Other nonspecific abnormal finding of lung field (principal); C34.11 Malignant neoplasm of upper lobe, right bronchus or lung
CPT/HCPCS: 31629; 31623; 31624; 31627; 31628; 31645; 31654; 71045; 76000; 81459; 88112; 88173; 88305; 88333; 88341; 88342; 94640; C1887

== ENCOUNTER → 2024-12-03 13:48 | Outpatient (REF) | payer BC, SELFPAY | LOC: PET 13:48 | PROVIDERS: ATTENDING PHYSICIAN Internal Medicine Hematology & Oncology | DX: C34.11 Malignant neoplasm of upper lobe, right bronchus or lung (principal) | CPT/HCPCS: 78815; A9552 ==

== ENCOUNTER → 2024-12-09 09:26 | Outpatient (REF) | payer BC, SELFPAY | LOC: MRI 09:26 | PROVIDERS: ATTENDING PHYSICIAN Internal Medicine Hematology & Oncology; FAMILY PHYSICIAN Nurse Practitioner Family | DX: C34.11 Malignant neoplasm of upper lobe, right bronchus or lung (principal) | CPT/HCPCS: 70553; A9575 ==

== ENCOUNTER → 2025-01-22 09:33 | Outpatient (REF) | payer BC, SELFPAY ==
[2025-01-22 10:06] LABS: Glucose 116 mg/dl (70-99)
[2025-01-22 10:07] LABS: HCG, Serum Qualitative Screen Negative
== END ==
LOC: PET 09:33
PROVIDERS: ATTENDING PHYSICIAN Nurse Practitioner; REFERRING PHYSICIAN Radiology Diagnostic Radiology
DX: C34.11 Malignant neoplasm of upper lobe, right bronchus or lung (principal); Z36.9 Encounter for antenatal screening, unspecified; C34.90 Malignant neoplasm of unspecified part of unspecified bronchus or lung
CPT/HCPCS: 36415; 82947; 84703

== ENCOUNTER → 2025-03-05 07:14 | Outpatient (REF) | payer BC, SELFPAY | LOC: PET 07:14 | PROVIDERS: ATTENDING PHYSICIAN Nurse Practitioner | DX: C34.11 Malignant neoplasm of upper lobe, right bronchus or lung (principal) | CPT/HCPCS: 78815; A9552 ==